=== PATIENT | female | born 1995 | race Caucasian/White ===

== ENCOUNTER 2018-07-19 05:50 | Inpatient (IN) | payer OTHER ==
[~2018-07-19] VITALS: Ht 157.5 cm; Wt 70.0 kg
[2018-07-19] MEDS ORDERED: VITAMIN D5000 UNI1 PO (07:14)
[2018-07-19] MEDS ORDERED: PRENATAL VITAM1 EAC7 PO (07:15)
--- NOTE | 2018-07-19 08:10 | PR ---
[facility] [address] [facility] [place], [place] [address] Signed Progress Notes IP Datetime Report Generated by CPN: 07/19/2018 08:09 PROGRESS NOTES: [id number] Procedures: Artificial ROM Plan: Continue present management; Anticipate Vaginal Delivery VITAL SIGNS: [id number] Vital Signs: Reviewed; Within Normal Limits EXAM: [id number] Dilatation: 4.0 Effacement: 50 Station: -3 Uterine Contractions: rare MEMBRANES: [id number] Membrane Status: Ruptured Amniotic Fluid Color: Clear ROM Note: AROM without difficluty Comments: Considering Epidural later. Will have patient up and walking. Fetus A: [id number] FHR Baseline: 140 Variability: Moderate 6-25bpm Accelerations: 15X15 Presentation: Vertex Fetus B: [id number] Signing Physician: Emiliana Sofia MD Copies: ~ *Electronically Signed* 07/19/18 08 EMILIANA SOFIA MD PATIENT NAME: ADDI CHAPARRO PROGRESS NOTE DATE OF : 95 PHYSICIAN: EMILIANA SOFIA MD RPT #: [id number] REPORT IS CONFIDENTIAL AND NOT TO BE RELEASED WITHOUT AUTHORIZATION
--- NOTE | 2018-07-19 13:07 | PR ---
[facility] [address] [facility] [place], [place] [address] Signed Progress Notes IP Datetime Report Generated by CPN: 07/19/2018 13:06 PROGRESS NOTES: [id number] Impression: Slow Progression of Labor Procedures: Artificial ROM Plan: Augmentation Other Plans: Pitocin VITAL SIGNS: [id number] Vital Signs: Reviewed; Within Normal Limits EXAM: [id number] Dilatation: 5.0 Effacement: 50 Station: -2 Uterine Contractions: rare MEMBRANES: [id number] Membrane Status: Ruptured Amniotic Fluid Color: Clear ROM Note: AROM without difficluty Comments: Still minimal contractions, so will start Pitocin Fetus A: [id number] FHR Baseline: 120 Variability: Moderate 6-25bpm Accelerations: 15X15 Presentation: Vertex Fetus B: [id number] Signing Physician: Emiliana Sofia MD Copies: ~ *Electronically Signed* 07/19/18 1306 EMILIANA SOFIA MD PATIENT NAME: ADDI CHAPARRO PROGRESS NOTE DATE OF : 95 PHYSICIAN: EMILIANA SOFIA MD RPT #: [id number] REPORT IS CONFIDENTIAL AND NOT TO BE RELEASED WITHOUT AUTHORIZATION
--- NOTE | 2018-07-19 20:38 | NUR ---
07/19/182037 [place] 2020- PT ARRIVES TO ROOM 102. OXYGEN SAT HIGH 90'S ON RA. IV SITE INFUSING WELL. PT REPORTS NO PAIN AT THIS TIME. DENIES NAUSEA OR DIZZINESS. 2024- PT SHAKING AND HAVING A HARD TIME OBTAINING BP. OTHER HOSPITAL STAFF GOING TO OBTAIN A MANUAL BP CUFF. 2031- PT GIVEN ICE CHIPS BY [facility]BC RN. PT TOLERATED WELL. CONTINUES TO REPORT NO PAIN, NAUSEA, OR DIZZINESS. PT'S MOTHER, BABY, AND FAMILY FRIEND AT THE BEDSIDE.
--- NOTE | 2018-07-20 10:21 | OR ---
[facility] [address] [place], [place] [address] Signed DATE OF OPERATION: 07/19/2018 SURGEON: Ivan Santos MD Patient of Dr. Santos. PREOPERATIVE DIAGNOSIS: Nonreassuring heart rate tracing. POSTOPERATIVE DIAGNOSIS: Nonreassuring heart rate tracing. PROCEDURE: Primary low transverse segment section. Delivery of live female . KNOT BORER: Dr. Brock. ANESTHESIA: Spinal. ESTIMATED BLOOD LOSS: 600 mL. COMPLICATIONS: None. DRAINS: Nur to bladder. FINDINGS: Live female in ROP presentation. Apgars 8 and 9. Weight 7 pounds 12 ounces. Normal uterus, normal tubes and ovaries bilateral. DESCRIPTION OF PROCEDURE: The patient was brought to the operating room, placed in supine position. After adequate spinal anesthesia was obtained, was prepped and draped in usual sterile fashion. Nur catheter was placed in the bladder. A Pfannenstiel skin incision was made with a scalpel, and extended through subcutaneous tissue with the Bovie. The fascia was nicked with scalpel, and extended in transverse fashion using curved Electronically Signed By: IVAN SANTOS MD 07/20/18 1021 PATIENT NAME: ADDI CHAPARRO OPERATIVE REPORT DATE OF : 95 REPORT #: [id number] PHYSICIAN: IVAN SANTOS MD PCP: JEROD RANDLE MD REPORT IS CONFIDENTIAL AND NOT TO BE RELEASED WITHOUT AUTHORIZATION [facility] [address] [place], [place] [address] Signed scissors. The underlying abdominal musculature was bluntly, sharpy from the fascia above and below the incision. The abdominal musculature was bluntly, sharply along the midline. The peritoneum was grasped, hemostats elevated, nicked with Metzenbaum scissors, extended in vertical fashion. The Jean self-retaining retractor was inserted into the incision and tightened in place. The lower uterine segment was identified, examined, and the lower uterine segment carefully nicked with a scalpel in the midline . Bulging bag of clear fluid came from the incision. This was opened as the incision was extended in transverse fashion using finger dissection. The was noted to be in the vertex ROP presentation. Infant head was easily delivered from the incision. The rest of the infant was easily delivered from the incision and cord doubly clamped and cut and infant passed off table in good condition awaiting nurse. A section of cord was saved and then the placenta manually removed. Uterine cavity was explored, a lap pad to remove any retained membranes. Angle stitch of 0 Monocryl was placed at one end of the incision and running locking stitch of 0 Monocryl starting at the other end used to close the incision. A 2nd running stitch of 0 Monocryl was used to imbricate the 1st layer. There was a small amount of bleeding on the left side of the incision. This was closed with a simple stitch of 0 Monocryl. When good hemostasis was obtained, the entire pelvis was irrigated, suctioned and examined. Any superficial bleeding spots were cauterized with the Bovie and good hemostasis was verified. The Jean retractor was removed and sheet of ACell placed over lower uterine segment to help with healing. The anterior wall peritoneum was then closed using running stitch of 2-0 Vicryl suture. The abdominal musculature was reapproximated using interrupted stitches of 0 Vicryl suture. The abdominal wall incision was irrigated, suctioned, examined, and any bleeding spots cauterized with the Bovie. Powdered ACell was sprinkled on the abdominal musculature and then the fascia closed using two running stitch of 0 Vicryl suture meeting in the midline. Subcutaneous tissue was irrigated, suctioned, examined, any bleeding spots cauterized with the Bovie. Subcutaneous tissue was then sprinkled with remaining powdered ACell and then closed using interrupted stitches of 3-0 Vicryl suture. The skin was reapproximated using skin clips. The patient tolerated the procedure well, went to recovery room in good condition. The sponge, needle, instrument count correct at the end of the procedure. Ivan Santos MD MJB/MODL /[id number] Electronically Signed By: IVAN SANTOS MD 07/20/18 1021 PATIENT NAME: ADDI CHAPARRO OPERATIVE REPORT DATE OF : 95 REPORT #: [id number] PHYSICIAN: IVAN SANTOS MD PCP: JEROD RANDLE MD REPORT IS CONFIDENTIAL AND NOT TO BE RELEASED WITHOUT AUTHORIZATION [address] [address] Signed Copies: ~ Electronically Signed By: IVAN SANTOS MD 07/20/18 1021 PATIENT NAME: SHANKARADDIKENDRA MCKINNEY OPERATIVE REPORT DATE OF : 95 REPORT #: [id number] PHYSICIAN: IVAN SANTOS MD PCP: JEROD RANDLE MD REPORT IS CONFIDENTIAL AND NOT TO BE RELEASED WITHOUT AUTHORIZATION
--- NOTE | 2018-07-21 11:33 | PR ---
[facility] [address] [facility] [place] [address] Signed PP Progress Notes Datetime Report Generated by CPN: 07/21/2018 11:33 SUBJECTIVE: [id number] Pain: Abnormal Pain Comments: Still some Left pelvic pain, worse this morning,slowly improving Nausea/Vomiting: Denies Flatus: No Vital Signs: [id number] Vital Signs: Reviewed; Within Normal Limits Notable Details: PP Hgb/Hct = 10.5/31.5 EXAM: [id number] Abdomen/Uterus: Normal Lochia: Normal Extremities: Normal Incision: Normal Exam Comments: No redness, no masses, no bruising LLQ IMPRESSION/PLAN/PROCEDURES: [id number] Impression: Normal progression; Pain Plan: Continue present management Procedures: None Progress Notes: Will continue to follow, probably home tomorrow. Signing Physician: Emiliana Sofia MD Copies: ~ *Electronically Signed* 07/21/18 1133 EMILIANA SOFIA MD PATIENT NAME: ADDI CHAPARRO PROGRESS NOTE DATE OF : 95 PHYSICIAN: EMILIANA SOFIA MD RPT #: [id number] REPORT IS CONFIDENTIAL AND NOT TO BE RELEASED WITHOUT AUTHORIZATION
== END 2018-07-22 18:35 | disposition home or self-care (01) | DRG 766 ==
LOC: FBC 05:50
PROVIDERS: ADMIT General Practice
PROC: 10D00Z1 Extraction of Products of Conception, Low, Open Approach (ICD-10-PCS; principal; 2018-07-19 19:38)
DX: O76 Abnormality in fetal heart rate and rhythm complicating labor and delivery (principal); Z3A.39 39 weeks gestation of pregnancy; Z37.0 Single live birth
CPT/HCPCS: 01961; 36415; 85027; C1763; J2274; J2370; J2405; J2590; J3010; J3105

== ENCOUNTER 2020-05-10 06:41 | Inpatient (IN) | payer OTHER ==
[~2020-05-10] VITALS: Ht 157.5 cm; Wt 83.0 kg
[~2020-05-10 06:41] MED LIST: PRENATAL VITAM1 EAC7 PO; VITAMIN D5000 UNI1 PO
--- NOTE | 2020-05-11 08:50 | NUR ---
05/11/20 0850 [place] 0885-PATIENT ARRIVED TO PACU AWAKE ON RA RR EVEN. DENIES PAIN OR NAUSEA. REPORTS "LITTLE ITCHYNESS TO NOSE BUT ITS OK" IV TO RIGHT HAND LR WITH 20 PITOCIN INFUSING CDI. SPINAL LEVEL AT T10. SMALL AMT OF SHADOWING ON ABDOMINAL DRESSING. SMALL AMT OF DRAINAGE TO MADHU PAD. HEARD CATHETER DRAINING. DAD AT BEDSIDE HOLDING BABY. SR.
--- NOTE | 2020-05-12 12:13 | PR ---
[facility] [address] [facility] [place], [place] [address] Signed PP Progress Notes Datetime Report Generated by CPN: 05/12/2020 12:13 SUBJECTIVE: [id number] Pain: Within normal limits Nausea/Vomiting: Denies Vital Signs: [id number] Vital Signs: Reviewed; Within Normal Limits Notable Details: PP Hgb/Hct = 9.1/27.1 EXAM: [id number] Abdomen/Uterus: Normal Lochia: Normal Extremities: Normal Incision: Normal IMPRESSION/PLAN/PROCEDURES: [id number] Impression: Normal progression Other Impression: PP Anemia Plan: Continue present management Procedures: None Progress Notes: Doing well, without complaint, tolerating food well, up and voiding withotu difficulty. Signing Physician: Emiliana Sofia MD Copies: ~ *Electronically Signed* 05/12/20 1213 EMILIANA SOFIA MD PATIENT NAME: ADDI CHAPARRO PROGRESS NOTE DATE OF : 95 PHYSICIAN: EMILIANA SOFIA MD RPT #: [id number] REPORT IS CONFIDENTIAL AND NOT TO BE RELEASED WITHOUT AUTHORIZATION
--- NOTE | 2020-05-12 12:15 | OR ---
[facility] [address] [place], [place] [address] Signed DATE OF OPERATION: 05/11/2020 SURGEON: Ivan Santos MD PREOPERATIVE DIAGNOSES: Term , previous section. POSTOPERATIVE DIAGNOSES: Term , previous section. PROCEDURE: Repeat low transverse segment section, delivery live male infant. FINANCE EFFECTIVENESS MANAGER: Dr. Brock. ANESTHESIA: Spinal. ESTIMATED BLOOD LOSS: 500 mL. COMPLICATIONS: None. DRAINS: Nur to bladder. FINDINGS: Live male infant, Apgars 9 and 9. Weight 7 pounds 3 ounces. Normal uterus except for a small omental adhesion to the anterior fundal portion of the uterus. Normal tubes and ovaries bilateral. DESCRIPTION OF PROCEDURE: The patient was brought into the operating room, placed in supine position. After adequate spinal anesthesia was obtained, she was prepped and draped in usual sterile fashion. Nur catheter was placed in the bladder. Skin incision was made above and below previous surgical scar using a scalpel and Allis clamps were used to elevate the old scar and scalpel was used to carefully remove the old surgical scar. Subcutaneous tissue was then dissected with the Bovie. The fascia was nicked with scalpel and Electronically Signed By: IVAN SANTOS MD 05/12/20 1215 PATIENT NAME: ADDI CHAPARRO OPERATIVE REPORT DATE OF : 95 REPORT #: [id number] PHYSICIAN: IVAN SANTOS MD PCP: JEROD RANDLE MD REPORT IS CONFIDENTIAL AND NOT TO BE RELEASED WITHOUT AUTHORIZATION [facility] [address] [place], [place] [address] Signed extended in a transverse fashion using curved scissors. The underlying abdominal musculature was bluntly and sharply from the fascia above and below the incision. The abdominal musculature was bluntly and sharply along the midline using Scott scissors. Peritoneum entered and extended in a vertical fashion using curved scissors. The Jean self-retaining retractor was inserted into the incision and tightened in place. The lower uterine segment was carefully nicked with scalpel and extended in transverse fashion using finger dissection. Bulging bag of clear fluid came from the incision, which was opened with pickups with teeth. The infant head was noted to be in vertex ROT presentation. The infant's head easily delivered from the incision. Cord was noted to be around the neck once loosely. This was removed and the rest of the infant easily delivered from the incision. The cord was doubly clamped and cut. The infant passed off table in good condition to awaiting nurse. Placenta was manually removed and uterine cavity explored and a lap pad to remove any retained membranes. An angle stitch of 0 Monocryl was placed on one end of the incision and a running locking stitch of 0 Monocryl starting at the other end, used to close the incision. A 2nd running stitch of 0 Monocryl was used to imbricate the 1st layer. Good hemostasis was noted. The entire pelvis was irrigated, suctioned examined of any superficial bleeding spots cauterized with the Bovie. The small omental adhesion to the anterior fundus was clamped with two Vicki clamps near the uterus, pedicle cut and the omental adhesion free tied with 2-0 chromic suture. The thin remaining omental adhesion attached to the uterus was carefully dissected free using cautery and good hemostasis was noted. At this point, the Jean retractor was removed and sheet of ACell placed over lower uterine segment and then the anterior peritoneum closed using running stitch of 2-0 Vicryl suture. The abdominal musculature was reapproximated using interrupted stitches of 0 Vicryl suture. The abdominal wall was irrigated, suctioned and examined any bleeding spots cauterized with the Bovie. Powdered ACell sprinkled on the abdominal musculature and then the fascia closed using 2 running stitch of 0 Vicryl suture meeting in the midline. Subcutaneous tissue was irrigated, suctioned, examined any bleeding spots cauterized with the Bovie. Interrupted stitches of 3-0 Vicryl were then used to close the subcutaneous tissue and then the skin closed using 4-0 Vicryl in a subcuticular stitch. Cordran tape was then placed over the incision and dressing placed over this. The patient tolerated the procedure well and went to the recovery room in good condition. The sponge, needle and instrument count were correct at the end of procedure. Ivan Santos MD Electronically Signed By: IVAN SANTOS MD 05/12/20 1215 PATIENT NAME: ADDI CHAPARRO OPERATIVE REPORT DATE OF : 95 REPORT #: [id number] PHYSICIAN: IVAN SANTOS MD PCP: JEROD RANDLE MD REPORT IS CONFIDENTIAL AND NOT TO BE RELEASED WITHOUT AUTHORIZATION [address] [address] Signed [facility] /[id number] Copies: ~ Electronically Signed By: IVAN SANTOS MD 05/12/20 1215 PATIENT NAME: ADDI CHAPARRO OPERATIVE REPORT DATE OF : 95 REPORT #: [id number] PHYSICIAN: IVAN SANTOS MD PCP: JEROD RANDLE MD REPORT IS CONFIDENTIAL AND NOT TO BE RELEASED WITHOUT AUTHORIZATION
--- NOTE | 2020-05-13 10:06 | PR ---
[facility] [address] [facility] [place] [address] Signed PP Progress Notes Datetime Report Generated by CPN: 05/13/2020 10:06 SUBJECTIVE: [id number] Pain: Within normal limits Nausea/Vomiting: Denies Vital Signs: [id number] Vital Signs: Reviewed; Within Normal Limits Notable Details: PP Hgb/Hct = 9.1/27.1 EXAM: [id number] Abdomen/Uterus: Normal Lochia: Normal Extremities: Normal Incision: Normal IMPRESSION/PLAN/PROCEDURES: [id number] Impression: Normal progression Other Impression: PP Anemia Plan: Continue present management Procedures: None Progress Notes: Doing well, excpept for slightl;y more abdominal soreness than yesterday. No other problems. WIll continue monitoring, plan discharge tomorrow instead of today. Signing Physician: Emiliana Sofia MD Copies: ~ *Electronically Signed* 05/13/20 1006 EMILIANA SOFIA MD PATIENT NAME: ADDI CHAPARRO PROGRESS NOTE DATE OF : 95 PHYSICIAN: EMILIANA SOFIA MD RPT #: [id number] REPORT IS CONFIDENTIAL AND NOT TO BE RELEASED WITHOUT AUTHORIZATION
--- NOTE | 2020-05-14 09:00 | PR ---
[facility] [address] [facility] [place], [place] [address] Signed PP Progress Notes Datetime Report Generated by CPN: 05/14/2020 09:00 SUBJECTIVE: [id number] Pain: Within normal limits Nausea/Vomiting: Denies Vital Signs: [id number] Vital Signs: Reviewed; Within Normal Limits Notable Details: PP Hgb/Hct = 9.1/27.1 EXAM: [id number] Abdomen/Uterus: Normal Lochia: Normal Extremities: Normal Incision: Normal IMPRESSION/PLAN/PROCEDURES: [id number] Impression: Normal progression Other Impression: PP Anemia Plan: Discharge Procedures: None Progress Notes: Doing better today, except had nightmares last night and some itlching in legs today, not sure if related to Percocet or not. Ready to go home, will change to [place] to see if that helps. Signing Physician: Emiliana Sofia MD Copies: ~ *Electronically Signed* 05/14/20 0900 EMILIANA SOFIA MD PATIENT NAME: ADDI CHAPARRO PROGRESS NOTE DATE OF : 95 PHYSICIAN: EMILIANA SOFIA MD RPT #: [id number] REPORT IS CONFIDENTIAL AND NOT TO BE RELEASED WITHOUT AUTHORIZATION
== END 2020-05-14 10:50 | disposition home or self-care (01) | DRG 788 ==
LOC: FBC 05-11 05:40
PROVIDERS: ADMIT General Practice
PROC: 10D00Z1 Extraction of Products of Conception, Low, Open Approach (ICD-10-PCS; principal; 2020-05-11 06:45)
DX: O34.211 Maternal care for low transverse scar from previous cesarean delivery (principal); N85.8 Other specified noninflammatory disorders of uterus; Z37.0 Single live birth; O32.2XX0 Maternal care for transverse and oblique lie, not applicable or unspecified; O90.81 Anemia of the puerperium; D64.9 Anemia, unspecified; O28.2 Abnormal cytological finding on antenatal screening of mother; O69.81X0 Labor and delivery complicated by cord around neck, without compression, not applicable or unspecified; O99.73 Diseases of the skin and subcutaneous tissue complicating the puerperium; L29.9 Pruritus, unspecified; T40.2X5A Adverse effect of other opioids, initial encounter; Y92.239 Unspecified place in hospital as the place of occurrence of the external cause; Z3A.39 39 weeks gestation of pregnancy; Z87.891 Personal history of nicotine dependence
CPT/HCPCS: 01961; 36415; 83030; 85027; 86850; 86870; 86900; 86901; A9270; J1885; J2001; J2274; J2300; J2370; J2405; J2590; J2790; J3010; J7121

== ENCOUNTER 2024-02-25 10:28 | Inpatient (IN) | payer OTHER ==
[~2024-02-25] VITALS: Ht 157.5 cm; Wt 93.4 kg
[2024-04-19] MEDS ORDERED: CEFAZOLIN SODIUM 2 GM/20 ML SYR IV SCH ×3 (07:00→20:15)
[2024-04-19] MEDS ORDERED: SOD+POT BICARB/CITRIC ACID 2 EA TABLET.EFF PO ONE (08:15)
[2024-04-19] MEDS ORDERED: LACTATED RINGER'S 1,000 ML IV PRN (08:15)
[2024-04-19 08:20] LABS: HEMOGLOBIN 11.5 g/dL (12.0-18.0); MCH 30.4 (27-36); MCHC 33.7 g/dl (30-36); MCV 90.2 fl (81-99); RBC 3.77 M/ul (4.3-5.7); RDW 15.7 (10.5-15.0)
[2024-04-19 08:49] LABS: ABO O; ANTIBODY SCREEN NEGATIVE; RH NEGATIVE
[2024-04-19] MEDS ORDERED: ondansetron HCL 4 MG/2 ML VIAL ONE (11:51)
[2024-04-19] MEDS ORDERED: BUPIVACAINE 0.75% IN DEXTROSE 2 ML AMP ONE (11:51)
[2024-04-19] MEDS ORDERED: LIDOCAINE HCL 2% 5 ML SDV ONE (11:51)
[2024-04-19] MEDS ORDERED: OXYTOCIN 10 UNITS/ML VIAL ONE ×3 (11:51→13:17)
[2024-04-19] MEDS ORDERED: MORPHINE SULFATE 1 MG/ML VIAL ONE (11:52)
[2024-04-19] MEDS ORDERED: fentaNYL citrate 100 MCG/2 ML VIAL ONE (11:52)
[2024-04-19] MEDS ORDERED: DEXAMETHASONE SOD PHOS 4 MG/ML VIAL ONE (11:53)
[2024-04-19] MEDS ORDERED: SODIUM CHLORIDE 0.9% 20 ML IV ONE (11:53)
[2024-04-19] MEDS ORDERED: Ropivacaine HCl 0.5% 30 ML VIAL ONE (11:53)
[2024-04-19] MEDS ORDERED: dexmedeTOMIDine HCl 200 MCG/2 ML VIAL ONE (12:13)
[2024-04-19 12:30] LABS: AMPHETAMINES, URINE NEGATIVE (NEGATIVE); BARBITURATES, URINE NEGATIVE (NEGATIVE); BENZODIAZEPINE, URINE NEGATIVE (NEGATIVE); BUPRENORPHINE, URINE NEGATIVE (NEGATIVE); CANNABINOID, URINE NEGATIVE (NEGATIVE); COCAINE, URINE NEGATIVE (NEGATIVE); ECSTASY, URINE NEGATIVE (NEGATIVE); FENTANYL, URINE NEGATIVE (NEGATIVE); METHADONE, URINE NEGATIVE (NEGATIVE); OPIATES, URINE NEGATIVE (NEGATIVE); OXYCODONE, URINE NEGATIVE (NEGATIVE); PHENCYCLIDINE, URINE NEGATIVE (NEGATIVE)
[2024-04-19] MEDS ORDERED: PHENYLEPHRINE HCL 10 MG/ML VIAL ONE (12:33)
[2024-04-19] MEDS ORDERED: PROCHLORPERAZINE EDISYLATE 10 MG/2 ML VIAL IV PRN (13:00)
[2024-04-19] MEDS ORDERED: KETOROLAC TROMETHAMINE 30 MG/ML VIAL IV PRN (13:00)
[2024-04-19] MEDS ORDERED: HYDROmorphone HCL 1 MG/ML SYR IV PRN (13:00)
[2024-04-19] MEDS ORDERED: diphenhydrAMINE HCL 50 MG/ML VIAL IV PRN (13:00)
[2024-04-19] MEDS ORDERED: NALOXONE HCL 0.4 MG SYR IV PRN (13:00)
[2024-04-19] MEDS ORDERED: diphenhydrAMINE HCL 50 MG/ML VIAL ONE (13:09)
[2024-04-19] MEDS ORDERED: LACTATED RINGER'S 1,000 ML IV ONE (13:17)
[2024-04-19] MEDS ORDERED: LACTATED RINGER'S 1,000 ML IV SCH (13:43)
[2024-04-19] MEDS ORDERED: PROMETHAZINE HCL 25 MG TAB PO PRN (13:45)
[2024-04-19] MEDS ORDERED: OXYCODONE/APAP 5/325 TAB PO PRN (13:45)
[2024-04-19] MEDS ORDERED: ondansetron HCL 4 MG/2 ML VIAL IV PRN (13:45)
[2024-04-19] MEDS ORDERED: METOCLOPRAMIDE HCL 10 MG/2 ML SDV IV PRN (13:45)
[2024-04-19] MEDS ORDERED: PROMETHAZINE HCL 25 MG SUPP PR PRN (13:45)
[2024-04-19] MEDS ORDERED: ePHEDrine sulfate 50 MG/ML AMP ONE (13:45)
[2024-04-19] MEDS ORDERED: HYDROCODONE/ACETA 5/325 TAB PO PRN (13:45)
[2024-04-19] MEDS ORDERED: OXYCODONE HCL 5 MG TAB PO PRN (13:45)
[2024-04-19] MEDS ORDERED: OXYTOCIN/0.9 % SODIUM CHLORIDE 500 ML IV SCH (13:45)
[2024-04-19] MEDS ORDERED: bisacodyL 10 MG SUPP PR PRN (13:45)
--- NOTE | 2024-04-19 13:58 | NUR ---
04/19/24 1358 [place] 1342-PATIENT ARRIVED TO ROM 103 FOR RECOVERY. PATIENT AWAKE BUT IS DROWSY DENIES PAIN OR NAUSEA. REPORTS "ITCHING TO NOSE" RA 97% RR EVEN. FUNDUS FIRM 1 BELOW UMBILICUS RUBRA DRAINAGE SMALL CLOT REMOVED. PATIET REPORTS "DIZZY" WHEN FUNDUS CHECKED HR 40'S. PATIENT REQUESTING WATER DISCUSSED WAITING. 1347-MONICA FEED HOUSE SUPERVISOR AT BEDSIDE AND ADMINISTERED IM EPHEDRINE TO RIGHT THIGH. HR 44. 1357-PATIENT RESTING WITH EYES CLOSED HOB SLIGHTLY ELEVATED WHEN FUNDUS CHECKED DENIES DIZZYNESS LIGHT RUBRA DRAINAGE. MOM HOLDING BABY TO LEFT ARM AND DAD AT BEDSIDE. RA 94% RR EVEN
[2024-04-19] MEDS ORDERED: KETOROLAC TROMETHAMINE 30 MG/ML VIAL IV SCH (14:00)
[2024-04-19] MEDS ORDERED: ACYCLOVIR 400 MG TAB PO SCH (15:00)
[2024-04-19] MEDS ORDERED: SIMETHICONE 125 MG TABLET CHEWABLE PO SCH (16:00)
[2024-04-19] MEDS ORDERED: TRANEXAMIC ACID IN NACL,ISO-OS 1,000 MG/100 ML PIGGYBACK IV ONE (18:00)
[2024-04-19 18:11] LABS: HEMATOCRIT 34.5 % (35.0-50.0); HEMOGLOBIN 11.3 g/dL (12.0-18.0); MCHC 32.7 g/dl (30-36); MCV 91.8 fl (81-99); RBC 3.75 M/ul (4.3-5.7); RDW 15.6 (10.5-15.0)
[2024-04-19 18:21] LABS: PARTIAL THROMBOPLASTIN TIME 26.9 Sec (22.9-41.3)
--- NOTE | 2024-04-19 18:21 | PR ---
[facility] [address] [place], [place] [address] Signed PP Progress Notes Datetime Report Generated by CPMitali: 04/19/2024 18:21 SUBJECTIVE: [id number] Pain: Within Normal Limits Nausea/Vomiting: Denies Flatus: Yes Bowel Movement: No Vital Signs: [id number] Vital Signs: Reviewed; Within Normal Limits Cardiovascular: Normal Respiratory: Normal Abdomen/Uterus: Normal Lochia: Abnormal Vulva/Perineum: Normal Breasts: Not Done CVA Tenderness: Normal Extremities: Normal Incision: Normal Progress: Not Applicable Exam Comments: Fundus somewhat boggy and U=0. Moderate size clots expressed from the uterus w/ bimanual exam and RN weighed at 89g. Uterus firm and bleeding scant. IMPRESSION/PLAN/PROCEDURES: [id number] Impression: Normal Progression Other Impression: hemorrhage Plan: Continue Present Management Progress Notes: Called to pt room with total QBL at 1000cc per RN. Hemogram, PT/INR, PTT, and fibrinogen ordered. TXA 1g IV ordered and infusing. Presented to pt's room. Boggy uterus noted and clot evacuated w/ resulting firming of uterus and resolution of bleeding. Pitocin infusing. Cytotec 800mcg SC administered by physician. Methergine 0.2mg IM administered by RN. Bleeding scant and pt doing very well. Normal vitals and urine output adequate. Will continue to monitor closely. Reviewed admission Hgb of 11.3. Discussed evaluation and treatment of pp hemorrhage. Discussed possible additional interventions as needed including additional medication and / or procedures as needed. All questions answered and pt and partner understand and agree. Signing Physician: Barbara Brock DO *Electronically Signed* 04/19/24 1821 BARBARA BROCK) DO PATIENT NAME: ADDI CHAPARRO PROGRESS NOTE DATE OF : 95 PHYSICIAN: BARBARA BROCK DO (JD) RPT #: [id number] REPORT IS CONFIDENTIAL AND NOT TO BE RELEASED WITHOUT AUTHORIZATION
[2024-04-19 18:22] LABS: INR 1.01 (0.80-1.30); PROTIME 12.6 Sec (11.2-14.2)
--- NOTE | 2024-04-19 18:22 | PR ---
[facility] [address] [place], [place] [address] Signed PP Progress Notes Datetime Report Generated by TIKA: 04/19/2024 18:22 SUBJECTIVE: [id number] Pain: Within Normal Limits Nausea/Vomiting: Denies Flatus: Yes Bowel Movement: No Vital Signs: [id number] Vital Signs: Reviewed; Within Normal Limits Cardiovascular: Normal Respiratory: Normal Abdomen/Uterus: Normal Lochia: Abnormal Vulva/Perineum: Normal Breasts: Not Done CVA Tenderness: Normal Extremities: Normal Incision: Normal Progress: Not Applicable Exam Comments: Fundus somewhat boggy and U=0. Moderate size clots expressed from the uterus w/ bimanual exam and RN weighed at 89g. Uterus firm and bleeding scant. IMPRESSION/PLAN/PROCEDURES: [id number] Impression: Normal Progression Other Impression: hemorrhage Plan: Continue Present Management Progress Notes: Called to pt room with total QBL at 1000cc per RN. Hemogram, PT/INR, PTT, and fibrinogen ordered. TXA 1g IV ordered and infusing. Presented to pt's room. Boggy uterus noted and clot evacuated w/ resulting firming of uterus and resolution of bleeding. Pitocin infusing. Cytotec 800mcg AR administered by physician. Methergine 0.2mg IM administered by RN. Bleeding scant and pt doing very well. Normal vitals and urine output adequate. Will continue to monitor closely. Reviewed admission Hgb of 11.3. Discussed evaluation and treatment of pp hemorrhage. Discussed possible additional interventions as needed including additional medication and / or procedures as needed. All questions answered and pt and partner understand and agree. Signing Physician: Barbara Brock DO *Electronically Signed* 04/19/24 182 BARBARA BROCK) DO PATIENT NAME: ADDI CHAPARRO PROGRESS NOTE DATE OF : 95 PHYSICIAN: BARBARA BROCK DO (JD) RPT #: [id number] REPORT IS CONFIDENTIAL AND NOT TO BE RELEASED WITHOUT AUTHORIZATION
[2024-04-19] MEDS ORDERED: METHYLERGONOVINE MALEATE 0.2 MG/ML AMP IM ONE (18:30)
[2024-04-19] MEDS ORDERED: miSOPROStoL 200 MCG TAB PV ONE (18:30)
[2024-04-19] MEDS ORDERED: OXYTOCIN/0.9 % SODIUM CHLORIDE 500 ML IV ONE ×2 (18:30→18:45)
--- NOTE | 2024-04-19 20:18 | PR ---
[facility] [address] [place], [place] [address] Signed PP Progress Notes Datetime Report Generated by CPN: 04/19/2024 20:18 SUBJECTIVE: [id number] Pain: Within Normal Limits Nausea/Vomiting: Denies Flatus: No Bowel Movement: No Vital Signs: [id number] Vital Signs: Reviewed; Within Normal Limits Cardiovascular: Normal Respiratory: Normal Abdomen/Uterus: Abnormal Lochia: Abnormal Vulva/Perineum: Normal Breasts: Not Done CVA Tenderness: Not Done Extremities: Normal Incision: Normal Progress: Not Applicable Exam Comments: Fundus U-1 and moderately firm. Bimanual exam w/ some additional clot noted. Again no retained POC noted. This was evacuated manually and pt tolerated well. Reviewed options for continued management of pp bleeding and recommended placement of MICHELLE system. See note below. 1302 total QBL IMPRESSION/PLAN/PROCEDURES: [id number] Impression: Normal Progression Other Impression: bleeding Plan: Continue Present Management Other Procedures: Michelle system placement Progress Notes: Pt w/ some continued bleeding and now QBL 1302 per RN. After evaluation, recommended Michelle and pt agrees. C/O some lightheadedness and reviewed recent labs / vitals. Michelle was easily placed per manufacture's instructions by removing air from collar, gently guiding Michelle into the intrauterine cavity, instilling 60cc sterile water into collar, ensuring proper alignment, and attaching to wall suction set at 80mmHg. Pt tolerated very well. Uterus firm, bleeding minimal, and patient is stable. Previously evacuated clot weighed per RN and included in total QBL. Will start Ancef 2g IV q 8hr while Michelle in place. Reviewed plan of care w/ RN and pt. All questions answered. Reviewed excellent urine output Signing Physician: Barbara Brock DO *Electronically Signed* 04/19/242017 BARBARA BROCK) DO PATIENT NAME: ADDI CHAPARRO HANK PROGRESS NOTE DATE OF : 95 PHYSICIAN: BARBARA BROCK DO (JD) RPT #: [id number] REPORT IS CONFIDENTIAL AND NOT TO BE RELEASED WITHOUT AUTHORIZATION [address] [address] Signed Copies: ~ *Electronically Signed* 04/19/242017 BARBARA BROCK) DO PATIENT NAME: ADDI CHAPARRO PROGRESS NOTE DATE OF : 95 PHYSICIAN: BARBARA BROCK DO (JD) RPT #: [id number] REPORT IS CONFIDENTIAL AND NOT TO BE RELEASED WITHOUT AUTHORIZATION
[2024-04-19] MEDS ORDERED: CEFAZOLIN SODIUM 2 GM/20 ML SYR IV ONE (20:45)
[2024-04-19] MEDS ORDERED: SENNOSIDES/DOCUSATE 1 EA TAB PO SCH (21:00)
[2024-04-19] MEDS ORDERED: ENOXAPARIN SODIUM 40 MG/0.4 ML SYR SUB-Q SCH (22:00)
[2024-04-20] MEDS ORDERED: LACTATED RINGER'S 1,000 ML IV SCH (05:00)
[2024-04-20 05:54] LABS: HEMATOCRIT 29.6 % (35.0-50.0); MCH 30.4 (27-36); MCHC 33.6 g/dl (30-36); MCV 90.5 fl (81-99); RBC 3.28 M/ul (4.3-5.7); RDW 15.6 (10.5-15.0)
[2024-04-20] MEDS ORDERED: CEFAZOLIN SODIUM 2 GM/20 ML SYR IV SCH (06:00)
[2024-04-20 07:07] LABS: ABO O; ANTIBODY SCREEN NEGATIVE; RH NEGATIVE
[2024-04-20 07:08] LABS: FETAL HEMOGLOBIN SCREEN NEGATIVE; RHIG DOSE 1; RHIG STATUS CANDIDATE; RHIG VIAL 1 RG23O03-B
--- NOTE | 2024-04-20 07:10 | PR ---
[facility] [address] [place], [place] [address] Signed PP Progress Notes Datetime Report Generated by CPN: 04/20/2024 07:09 SUBJECTIVE: [id number] Pain: Within Normal Limits Nausea/Vomiting: Denies Flatus: No Bowel Movement: No Vital Signs: [id number] Vital Signs: Reviewed; Within Normal Limits Notable Details: Good urine output Cardiovascular: Normal Respiratory: Normal Abdomen/Uterus: Normal Lochia: Normal Vulva/Perineum: Normal Breasts: Not Done CVA Tenderness: Normal Extremities: Normal Incision: Normal Progress: Not Applicable Exam Comments: Fundus firm U-1 nontender. Incision bandaged and dry. Michelle in place w/ scant blood in tubing. IMPRESSION/PLAN/PROCEDURES: [id number] Impression: Normal Progression Other Impression: bleeding Plan: Continue Present Management Other Procedures: See below of Michelle management Progress Notes: Pt seen and examined. Doing well. Bleeding scant with Michelle overnight. Hgb 10.0. No lightheadedness / dizziness / fever or other concerns. Hoping to have Michelle out this morning. Received two doses of Ancef overnight. Will stop Michelle suction for at least 30 minutes and then remove if uterus firm and bleeding scant. Pt understands and agrees. All questions answered. Signing Physician: Barbara Brock DO Copies: ~ *Electronically Signed* 04/20/24 0709 BARBARA BROCK (MAR) DO PATIENT NAME: ADDI CHAPARRO PROGRESS NOTE DATE OF : 95 PHYSICIAN: BARBARA BROCK (JD) DO RPT #: [id number] REPORT IS CONFIDENTIAL AND NOT TO BE RELEASED WITHOUT AUTHORIZATION
[2024-04-20] MEDS ORDERED: PROCHLORPERAZINE EDISYLATE 10 MG/2 ML VIAL IV PRN (13:00)
[2024-04-20] MEDS ORDERED: IBUPROFEN 600 MG TAB PO SCH (14:00)
[2024-04-20 19:17] VITALS: BP 101/58
[2024-04-20] MEDS ORDERED: HYDROmorphone HCL 1 MG/ML SYR IV PRN (21:30)
[2024-04-20] MEDS ORDERED: HYDROmorphone HCL 2 MG TAB PO PRN (21:30)
--- NOTE | 2024-04-20 21:36 | PR ---
[facility] [address] [facility] [place], [place] [address] Signed PP Progress Notes Datetime Report Generated by TIKA: 04/20/2024 21:36 SUBJECTIVE: [id number] Pain: Abnormal Nausea/Vomiting: Denies Flatus: Yes Bowel Movement: No Vital Signs: [id number] Vital Signs: Reviewed; Within Normal Limits Notable Details: Good urine output Cardiovascular: Not Done Respiratory: Not Done Abdomen/Uterus: Abnormal Lochia: Normal Vulva/Perineum: Not Done Breasts: Not Done CVA Tenderness: Normal Extremities: Normal Incision: Normal Progress: Not Applicable Exam Comments: Looks generally uncomfortable. Abdomen with active BS. Fundus firm but moderately tender at U-1. Incision clean and intact. No CVA tenderness. IMPRESSION/PLAN/PROCEDURES: [id number] Impression: Pain Other Impression: bleeding Plan: Continue Present Management Other Plans: check CBC, change pain meds Other Procedures: See below of Michelle management Progress Notes: Much more uncomfortable tonight compared to last pm. Exam is most consistent w/ normal postop course but her reaction is not consistent w/ this. She may be developing an endometritis following her pp hemorrhage with Michelle. Will check CBC now to assure no internal bleeding. Will change pain meds as well to see if this is helpful. Will also add binder. Signing Physician: Pascale Pascal MD *Electronically Signed* 04/20/24 6721 PASCALE PASCAL MD PATIENT NAME: ADDI CHAPARRO PROGRESS NOTE DATE OF : 95 PHYSICIAN: PASCALE PASCAL MD RPT #: [id number] REPORT IS CONFIDENTIAL AND NOT TO BE RELEASED WITHOUT AUTHORIZATION
[2024-04-20 21:43] LABS: BASOPHILS 0.5 % (0-2); EOSINOPHILS 0.3 % (0-6); HEMATOCRIT 27.9 % (35.0-50.0); HEMOGLOBIN 9.3 g/dL (12.0-18.0); MCH 30.7 (27-36); MCHC 33.5 g/dl (30-36); MCV 91.6 fl (81-99); MONOCYTES 6.7 % (0-12); NEUTROPHILS 73.5 % (39-80); PLATELET COUNT 168 K/uL (140-440); RBC 3.04 M/ul (4.3-5.7); RDW 15.7 (10.5-15.0)
[2024-04-20] MEDS ORDERED: ACETAMINOPHEN 500 MG TAB PO SCH (22:00)
[2024-04-21] MEDS ORDERED: IBUPROFEN 800 MG TAB PO SCH (02:00)
[2024-04-21 05:42] LABS: BASOPHILS 0.9 % (0-2); EOSINOPHILS 0.5 % (0-6); HEMATOCRIT 26.8 % (35.0-50.0); LYMPHOCYTES 23.3 % (24-44); MCH 30.7 (27-36); MCHC 33.6 g/dl (30-36); MCV 91.5 fl (81-99); MONOCYTES 6.6 % (0-12); NEUTROPHILS 68.7 % (39-80); PLATELET COUNT 167 K/uL (140-440); RBC 2.93 M/ul (4.3-5.7); RDW 15.8 (10.5-15.0)
--- NOTE | 2024-04-21 06:57 | PR ---
[facility] [address] [place], [place] [address] Signed PP Progress Notes Datetime Report Generated by CPN: 04/21/2024 06:57 SUBJECTIVE: [id number] Pain: Abnormal Nausea/Vomiting: Denies Flatus: Yes Bowel Movement: No Vital Signs: [id number] Vital Signs: Reviewed; Within Normal Limits Notable Details: Afebrile Cardiovascular: Normal Respiratory: Normal Abdomen/Uterus: Abnormal Lochia: Normal Vulva/Perineum: Not Done Breasts: Not Done CVA Tenderness: Normal Extremities: Normal Incision: Normal Progress: Not Applicable Exam Comments: Fundus firm U-1 but tender. Afebile. No CVA tenderness. Incision healing well. Pain limited primarily to the uterine fundus IMPRESSION/PLAN/PROCEDURES: [id number] Impression: Pain Other Impression: bleeding Plan: Continue Present Management Other Plans: check CBC, change pain meds Other Procedures: See below of Michelle management Progress Notes: Pt seen and examined. Increasing pain overnight despite escalation of pain management. Afebrile. No subjective fevers, flank pain, or spinal site pain. Heat helps some but IV / oral pain medications of limited benefit. No leukocytosis last night or this morning. Unclear source of pain; will further evaluate w/ CT. Pt understands and agrees. Signing Physician: Barbara Brock DO *Electronically Signed* 04/21/24 0657 BARBARA BROCK (MAR) DO PATIENT NAME: ADDI CHAPARRO PROGRESS NOTE DATE OF : 95 PHYSICIAN: BARABRA BROCK (JD) DO RPT #: [id number] REPORT IS CONFIDENTIAL AND NOT TO BE RELEASED WITHOUT AUTHORIZATION
[2024-04-21] MEDS ORDERED: HYDROmorphone HCL 1 MG/ML SYR IV PRN (09:00)
[2024-04-21] MEDS ORDERED: OXYCODONE HCL 5 MG TAB PO PRN ×2 (09:00→09:45)
[2024-04-21] MEDS ORDERED: SERTRALINE HCL 50 MG TAB PO SCH (09:00)
[2024-04-21] MEDS ORDERED: DEXAMETHASONE SOD PHOS 4 MG/ML VIAL ONE (09:58)
[2024-04-21] MEDS ORDERED: SODIUM CHLORIDE 0.9% 20 ML IV ONE ×2 (09:58→10:00)
[2024-04-21] MEDS ORDERED: dexmedeTOMIDine HCl 200 MCG/2 ML VIAL ONE (09:58)
[2024-04-21] MEDS ORDERED: Ropivacaine HCl 0.5% 30 ML VIAL ONE (09:58)
[2024-04-21] MEDS ORDERED: LIDOCAINE HCL 2% 5 ML SDV ONE (09:59)
[2024-04-21] MEDS ORDERED: NICOTINE 14 MG/24 HR 1 EA TDSY TD SCH (14:20)
--- NOTE | 2024-04-22 11:47 | PATH ---
[facility] [address] [place], [place] [address] Signed SPECIMEN(S): A FALLOPIAN TUBES SPECIMEN SOURCE: A. FALLOPIAN TUBES CLINICAL HISTORY: Maternal request FINAL PATHOLOGIC DIAGNOSIS: Fallopian tubes, bilateral, salpingectomy: - Fimbriated fallopian tube segments (two) with no significant pathologic changes BRP MICROSCOPIC EXAMINATION: Histologic sections of all submitted blocks are examined by light microscopy. These findings, together with the gross examination, support the pathologic diagnosis. GROSS DESCRIPTION: The specimen, labeled and designated "Evelyn, bilateral fallopian tubes," is received in formalin and consists of two red-brown fimbriated edematous fallopian tube segments (6.7 cm in length and ranging in diameter from 0.9 to 1.4 cm, and 6.2 cm in length and ranging in diameter from 0.8-1.2 cm). One of the segments is arbitrarily inked blue. Both segments are serially sectioned to reveal red-brown soft cut surfaces. Gis Manager sections including the fimbriae entirely are submitted in cassette (A1-A2). VB (under the direct supervision of a pathologist) The Gross Description was prepared using a voice recognition system. The report was reviewed for accuracy; however, sound-alike word errors, addition and/or deletions may occur. If there is any question about this report, please contact Client Services. ADDITIONAL NOTES: Immunohistochemical and/or in situ hybridization studies if performed in this case included appropriate positive controls that reacted as expected. This test was developed and its performance characteristics determined by [facility]. It has not been cleared or approved by the U.S. Food and Drug Administration. The FDA has determined that such clearance or approval is not PATIENT NAME: ADDI CHAPARRO PATHOLOGY DATE OF : [birth year] REPORT #: [id number] PHYSICIAN: FREDERIC MCWILLIAMS PCP: AMY LA NP REPORT IS CONFIDENTIAL AND NOT TO BE RELEASED WITHOUT AUTHORIZATION [facility] [address] [place], [place] [address] Signed necessary. This test is used for clinical purposes. It should not be regarded as investigational or for research. [facility] is certified under the Clinical Laboratory Improvement Amendments of 1988 (CLIA) as qualified to perform high complexity clinical laboratory testing. PERFORMING LABORATORY: Technical component was performed by [facility], [address] [place] [id number] (CLIA# [id number]). Professional interpretation was performed by [facility], [address] [address] (CLIA# [id number]). Diagnostician: Valerio Gruber MD Pathologist Electronically Signed 04/22/2024 Copies: ~ PATIENT NAME: ADDI CHAPARRO PATHOLOGY DATE OF : 95 REPORT #: [id number] PHYSICIAN: FREDERIC PATHOLOGY PCP: AMY LA NP REPORT IS CONFIDENTIAL AND NOT TO BE RELEASED WITHOUT AUTHORIZATION
--- NOTE | 2024-04-22 13:26 | PR ---
[facility] [address] [place], [place] [address] Signed PP Progress Notes Datetime Report Generated by CPN: 04/22/2024 13:26 SUBJECTIVE: [id number] Pain: Within Normal Limits Nausea/Vomiting: Denies Flatus: Yes Bowel Movement: Yes Vital Signs: [id number] Vital Signs: Reviewed; Within Normal Limits Notable Details: Afebrile Cardiovascular: Normal Respiratory: Normal Abdomen/Uterus: Normal Lochia: Normal Vulva/Perineum: Not Done Breasts: Not Done CVA Tenderness: Normal Extremities: Normal Incision: Normal Progress: Normal Exam Comments: Fundus firm U-2 minimally tender. Somewhat bloated and tympanic. Incision well healing IMPRESSION/PLAN/PROCEDURES: [id number] Impression: Normal Progression Other Impression: bleeding Plan: Discharge Other Plans: check CBC, change pain meds Other Procedures: See below of Michelle management Progress Notes: Pt seen and examined. Doing well. Ambulating, voiding, and tolerating full diet. Still moderately painful but controlled w/ decreasing oral regimen. Lochia minimal. . Desires d/c home. Reviewed d/c instructions. S/P bilateral salpingectomy for contraception. All questions answered. F/U early next week for staple removal Signing Physician: Barbara Brock DO *Electronically Signed* 04/22/24 0173 BARBARA BROCK (MAR) DO PATIENT NAME: ADDI CHAPARRO PROGRESS NOTE DATE OF : 95 PHYSICIAN: BARBARA BROCK (JD) DO RPT #: [id number] REPORT IS CONFIDENTIAL AND NOT TO BE RELEASED WITHOUT AUTHORIZATION
--- NOTE | 2024-04-27 00:24 | OR ---
[facility] [address] [place] [address] Signed DATE OF OPERATION: 04/19/2024 SURGEON: Barbara Brock DO PREOPERATIVE DIAGNOSES: 1. Term . 2. History of . 3. Desires salpingectomy. POSTOPERATIVE DIAGNOSES: 1. Term . 2. History of . 3. Desires salpingectomy. 4. Bladder adhesions. PROCEDURES PERFORMED: 1. Repeat low transverse section. 2. Bilateral salpingectomy. 3. Lysis of bladder adhesions. CASE MANAGEMENT COORDINATOR: Pascale Pascal MD ANESTHESIA: Spinal with postoperative TAP blocks. COMPLICATIONS: None. ESTIMATED BLOOD LOSS: 600 mL. DRAINS: Nur to gravity. FINDINGS: Delivery of viable male , 7 pounds 1 ounce with Apgars of 8 and 9 in the DOLORES position with clear amniotic fluid and no nuchal cord. Normal uterus, tubes, and ovaries other than significant bladder adhesions that were taken down without difficulty. Electronically Signed By: BARBARA BROCK DO (JD) 04/27/24 0024 PATIENT NAME: ADDI CHAPARRO OPERATIVE REPORT DATE OF : 95 REPORT #: [id number] PHYSICIAN: BARBARA BROCK DO (JD) PCP: AMY LA NP REPORT IS CONFIDENTIAL AND NOT TO BE RELEASED WITHOUT AUTHORIZATION [address] [address] Signed INDICATIONS: Ms. Chaparro is a very pleasant 29-year-old female, who presents for repeat low transverse section. She also desires bilateral salpingectomy. Risks, benefits, and alternatives were discussed in detail with the patient. The patient understands and wishes to proceed with the procedure. DESCRIPTION OF PROCEDURE: The patient was taken to the OR where a time-out was performed to confirm correct patient and correct procedure. Spinal anesthesia was adequately established. The patient was prepped and draped in the supine position with a bump under the right hip. Nur catheter was inserted. The patient received Ancef 2 g preoperatively per SCIP protocol and no heparin was indicated. Once spinal was noted to be adequate, a Pfannenstiel skin incision was made through her prior scar and carried down to the fascia. Fascia was nicked in the midline and fascial incision was extended bilaterally using curved Scott scissors. Fascia was grasped with Connie's, elevated, and the underlying rectus dissected off bluntly and sharply. The rectus was divided in the midline and peritoneum was entered bluntly. At this point, significant bladder adhesions were noted to at least the midportion of the uterus. Peritoneal incision was very carefully extended cephalad and caudad using combination of blunt and sharp dissection. Lysis of bladder adhesions was performed using Metzenbaum scissors and the bladder was easily mobilized beyond the lower uterine segment. At this point, Jean self retractor was placed and the lower uterine segment identified. Hysterotomy was performed using a surgical scalpel and clear amniotic fluid was noted. Hysterotomy was extended bilaterally using blunt dissection. Surgeon's hand was placed in the uterine cavity and the head elevated in the DOLORES position and delivered with the assistance of fundal pressure. No nuchal cord and was vigorous and cried upon delivery. Cord was doubly clamped and cut and the handed to the waiting pediatric team for further care. Cord blood was obtained for routine analysis. The placenta was expressed, intact with a centrally inserted three-vessel cord. Pitocin was administered per protocol. The uterine cavity was cleared of any remaining products of conception or clot. Hysterotomy was then repaired using 0 Monocryl and two layers, the first being a running locked layer and the second being a running imbricating layer in a vertical manner. Excellent hemostasis was appreciated and the pelvis was irrigated. Attention was then turned to bilateral salpingectomy. The patient again verbally confirmed her desire to proceed. The right fallopian tube was grasped with Maria Stein's, elevated and dissected along the mesosalpinx using the LigaSure device with excellent hemostasis. The tube was amputated at the cornu. After assuring hemostasis, the process was repeated on the left side without difficulty. The uterus was returned to the abdomen and survey of the abdomen was again performed with irrigation confirming hemostasis. Jean self retractor was removed and the peritoneum was reapproximated using 2-0 Vicryl in a running nonlocked manner. Rectus was loosely plicated in the midline using Electronically Signed By: BARBARA MELCHOR) DO RASHAD 04/27/24 0024 PATIENT NAME: ADDI CHAPARRO OPERATIVE REPORT DATE OF : 95 REPORT #: [id number] PHYSICIAN: BARBARA BROCK DO (JD) PCP: AMY LA NP REPORT IS CONFIDENTIAL AND NOT TO BE RELEASED WITHOUT AUTHORIZATION [facility] [address] [place] [address] Signed interrupted sutures of 0 Vicryl. Hemostasis was appreciated after judicious use of Bovie electrocautery and irrigation. Fascia was reapproximated using 0 Vicryl in a running nonlocked manner. Subcu was irrigated, made hemostatic with judicious use of Bovie electrocautery and reapproximated using 3-0 Vicryl. Skin was reapproximated using surgical joseph. The uterus was Crede'd for a scant amount of blood and the patient remained in the PACU for postoperative TAP block. Sponge, needle and instrument counts were correct x2 at the end of procedure. Dr. Pascal was present and participated in all portions of the procedure. DO ABIMAEL Prasad/MODL /[id number] Copies: ~ Electronically Signed By: BARBARA BROCK DO (JD) 04/27/24 0024 PATIENT NAME: ADDI CHAPARRO OPERATIVE REPORT DATE OF : 95 REPORT #: [id number] PHYSICIAN: BARBARA BROCK DO (JD) PCP: AMY LA NP REPORT IS CONFIDENTIAL AND NOT TO BE RELEASED WITHOUT AUTHORIZATION
== END 2024-04-22 15:35 | disposition home or self-care (01) | DRG 784 ==
LOC: FBC 04-19 07:29
PROVIDERS: Obstetrics & Gynecology; ADMIT Obstetrics & Gynecology; ATTEND Obstetrics & Gynecology
PROC: 10D00Z1 Extraction of Products of Conception, Low, Open Approach (ICD-10-PCS; principal; 2024-04-19 11:00)
PROC: 0UB70ZZ Excision of Bilateral Fallopian Tubes, Open Approach (ICD-10-PCS; 2024-04-19 11:00)
PROC: 0W3R7ZZ Control Bleeding in Genitourinary Tract, Via Natural or Artificial Opening (ICD-10-PCS; 2024-04-19 11:00)
DX: O34.211 Maternal care for low transverse scar from previous cesarean delivery (principal); O72.1 Other immediate postpartum hemorrhage; O99.892 Other specified diseases and conditions complicating childbirth; N32.89 Other specified disorders of bladder; Z3A.39 39 weeks gestation of pregnancy; Z37.0 Single live birth; Z30.2 Encounter for sterilization
CPT/HCPCS: 01961; 36415; 74177; 76942; 80307; 83030; 85025; 85027; 85384; 85610; 85730; 86850; 86900; 86901; 88302; A9270; J0690; J1100; J1170; J1200; J1650; J1885; J2001; J2210; J2274; J2371; J2405; J2590; J2790; J2795; J3010; J7121; Q9967